=== PATIENT | female | born 1995 | race Caucasian/White ===

== ENCOUNTER 2020-01-14 00:42 | Observation (INO) | payer SELFPAY ==
[2020-01-14] MEDS ORDERED: ONDANSETRON HCL INJ/PF 4 MG/2 ML SDV IV ONE ×2 (01:42→09:34)
[2020-01-14] MEDS ORDERED: NORMAL SALINE 1000 ML 1,000 ML IV ONE ×3 (01:42→12:38)
[2020-01-14] MEDS ORDERED: MORPHINE SULFATE 10 MG/ML INJ IV ONE ×4 (01:42→12:07)
--- NOTE | 2020-01-14 01:46 | ER Document Report ---
ED GI/ - General TRAVEL OUTSIDE OF THE [place] IN LAST 30 DAYS: No <VALENTIN AGUIAR - Last Filed: 01/14/20 07:40> <KAREN ABERNATHY - Last Filed: 01/14/20 12:44> - General Chief Complaint: Abdominal Pain Stated Complaint: POSSIBLE APPENDIX PAIN Time Seen by Provider: 01/14/20 01:34 Primary Care Provider: MARCELO GILBERT [NO LOCAL MD] - Follow up as needed Notes: Patient is a 24-year-old female that comes emergency department for chief complaint of mid to right lower abdominal pain that is been constant for the past 3 days with vomiting for the past 2 days multiple times. She also reports that she has some current light vaginal bleeding but she is unsure if she has discharge. She denies dysuria or flank pain. She states that she was evaluated at [facility] yesterday, she states she had a CAT scan and ultrasound, she states they told her she had a UTI and discharged her. She states they told her that her "appendix was inflamed but the white blood cell count was not high enough". She also reports a history of kidney stones, ovarian cysts (PCOS), and cholecystectomy. She states she takes vitamins on a daily basis but no other medications. Even when I asked patient when her last menstrual period she failed to tell me that she was . She states she thought I was told by nursing who interviewed her first. After her positive test I reevaluated her, she states that she is actually 7 weeks with twins, she had a intrauterine noted yesterday with the ultrasound, and she still insist that they cat scanned her yesterday. We are obtaining the reports. (VALENTIN AGUIAR) - Related Data Allergies/Adverse Reactions: No Known Allergies Allergy (Verified 02/15/13 13:57) Past Medical History - General Information source: Patient - Social History Smoking Status: Never Smoker Frequency of alcohol use: None Drug Abuse: None Lives with: Family Family History: Reviewed & Not Pertinent Patient has suicidal ideation: No Patient has homicidal ideation: No Renal/ Medical History: Reports: Hx Kidney Stones Past Surgical History: Reports: Hx Cholecystectomy, Hx Orthopedic Surgery - ankle & wrist - Immunizations Hx Diphtheria, Pertussis, Tetanus Vaccination: Yes <VALENTIN AGUIAR - Last Filed: 01/14/20 07:40> Review of Systems - Review of Systems Constitutional: No symptoms reported EENT: No symptoms reported Cardiovascular: No symptoms reported Respiratory: No symptoms reported Gastrointestinal: See HPI Genitourinary: No symptoms reported Female Genitourinary: See HPI Musculoskeletal: No symptoms reported Skin: No symptoms reported Hematologic/Lymphatic: No symptoms reported Neurological/Psychological: No symptoms reported <VALENTIN AGUIAR - Last Filed: 01/14/20 07:40> Physical Exam <VALENTIN AGUIAR - Last Filed: 01/14/20 07:40> - Vital signs Vitals: Temp Pulse Resp BP Pulse Ox 97.8 F 68 15 123/73 100 01/14/20 00:48 01/14/20 00:48 01/14/20 00:48 01/14/20 00:48 01/14/20 00:48 - Notes Notes: GENERAL: Alert, interacts well. Patient appears somewhat uncomfortable HEAD: Normocephalic, atraumatic. EYES: Pupils equal, round, and reactive to light. Extraocular movements intact. ENT: Oral mucosa moist, tongue midline. Oropharynx unremarkable. Airway patent. NECK: Full range of motion. Supple. Trachea midline. LUNGS: Clear to auscultation bilaterally, no wheezes, rales, or rhonchi. No respiratory distress. HEART: Regular rate and rhythm. No murmur ABDOMEN: There is tenderness in the right lower quadrant and in the right pelvic area with wincing. There is no severe guarding or rebound tenderness. Remaining abdomen is soft and unremarkable. Bowel sounds present. GENITOURINARY: Cervix closed, no current bleeding or significant discharge, unremarkable exam. Performed with SEBASTIÁN Moctezuma. EXTREMITIES: Moves all 4 extremities spontaneously. No edema, normal radial and dorsalis pedis pulses bilaterally. No cyanosis. BACK: no cervical, thoracic, lumbar midline tenderness. No saddle anesthesia, normal distal neurovascular exam. Moves all extremities in full range of motion. NEUROLOGICAL: Alert and oriented x3. Normal speech. Cranial nerves II through XII grossly intact. PSYCH: Slightly tearful SKIN: Warm, dry, normal turgor. No rashes or lesions noted. (VALENTIN AGUIAR) Course - Laboratory Result Diagrams: 01/14/20 02:00 01/14/20 02:00 <VALENTIN AGUIAR - Last Filed: 01/14/20 07:40> - Laboratory Result Diagrams: 01/14/20 02:00 01/14/20 02:00 <KAREN ABERNATHY - Last Filed: 01/14/20 12:44> - Re-evaluation Re-evalutation: Patient is tender in the right lower quadrant. Pelvic exam is unremarkable. Remaining exam is unremarkable. Vital signs nonspecific with no fever. CBC does show leukocytosis at 17,000 with elevation of neutrophils but no bandemia. Hemoglobin unremarkable. RhoGam not indicated. hCG is elevated as expected. Urine nonspecific. Ultrasound shows living intrauterine twin gestations at 7 weeks with no acute findings. Ultrasound of the right lower quadrant does not show any concerning findings. On reevaluation patient continues to have right lower quadrant pain on exam and is uncomfortable again. I have attempted to get [facility] records twice now, first records were incomplete, second records received several hours later and finally shows that patient had an MRI without contrast on 01/12/2020 which showed an appendicolith but no overt inflammation of the appendix. I called and spoke with Dr. Rascon, surgery on-call, he recommends most likely patient will need an MRI if she is agreeable with this and that I should consult MATHEMATICAL ENGINEER in regards to the type of MRI (contrast or not). He also recommends that I discussed with patient that if she need surgery there is a around 60% chance that she will lose the twins. He requests that if imaging is performed that he be called back. I did discuss this with patient. She states the pain is persistent and she would like to proceed with imaging and potential surgery. I called and spoke with Dr. Bar, MATHEMATICAL ENGINEER oncology, she recommends MRI of the abdomen with contrast. She recommends I discussed with patient that the contras t has not been extremely studied but there have been no documented concerning events, patient still agreeable. Imaging ordered, Dr. Rascon will be called back with the results. (VALENTIN AGUIAR) 01/14/20 08:36 Assumed care of the patient from LINCOLN Aguiar. Patient with RLQ abd pain with leukocytosis with high suspicion for possible appendicitis. Patient is 7 weeks with twin gestation. US failed to evaluate fully for appendicitis and MRI has been recommended. Apparently she was evaluated at [place] for the same and MRI was performed that showed an appendicolith. Dr. Rascon and Dr. Bar were consulted. Plan to call Dr. Rascon after results of MRI. 01/14/20 11:36 Noted MRI reading here that does not visualize the appendix but also states that there is no inflammatory changes in the right lower quadrant. Patient has required more pain medicine and antiemetic medicine here prior to MRI. I called Dr. Roman, general surgeon on-call and explained the case to him which was turned over to him by Dr. Rascon. He will come see the patient. He is asked me to consult MATHEMATICAL ENGINEER. I spoke with Dr. Clay, TAXONOMY TEACHER on-call. She will come and consult on the patient. 01/14/20 12:03 Dr. Clay came down and saw the patient. She agrees that she is very tender in the right lower quadrant and she will call Dr. Roman and let him know that she came and saw the patient as well. 01/14/20 12:42 Dr. Lawson came and saw the patient. He will take her to the OR. He asked for me to write for Zosyn and give her another liter of fluid as well. Patient is aware of the plan and she agrees. We will admit her for acute appendicitis. (KAREN ABERNATHY) - Vital Signs Vital signs: Temp Pulse Resp BP Pulse Ox 98.0 F 88 16 98/55 L 100 01/14/20 08:58 01/14/20 08:58 01/14/20 08:58 01/14/20 08:58 01/14/20 08:58 - Laboratory Laboratory results interpreted by me: 01/14/20 01/14/20 01/14/20 02:00 02:00 02:00 WBC 17.4 H Absolute Neuts (auto) 12.8 H Creatinine 0.49 L Serum HCG, Qual POSITIVE H Beta HCG, Quant 01/14/20 02:00 WBC Absolute Neuts (auto) Creatinine Serum HCG, Qual Beta HCG, Quant 801407.00 H Discharge <VALENTIN AGUIAR - Last Filed: 01/14/20 07:40> - Discharge Admitting Provider: Surgicalist - Dr. Roman Unit Admitted: Surgical Floor <KAREN ABERNATHY - Last Filed: 01/14/20 12:44> - Discharge Clinical Impression: Right lower quadrant pain Twin gestation in first trimester Qualifiers: Multiple gestation type: unspecified Qualified Code(s): O30.001 - Twin , unspecified number of placenta and unspecified number of amniotic sacs, first trimester Acute appendicitis Qualifiers: Acute appendicitis type: unspecified acute appendicitis type Qualified Code(s): K35.80 - Unspecified acute appendicitis Condition: Stable Disposition: ADMITTED INPATIENT Referrals: LOCAL,NO [NO LOCAL MD] - Follow up as needed
[2020-01-14 02:13] LABS: ABSOLUTE BASOPHILS # (AUTO) 0.1 10^3/uL (0.0-0.2); ABSOLUTE EOSINOPHILS # (AUTO) 0.3 10^3/uL (0.0-0.6); ABSOLUTE LYMPHOCYTES (AUTO) 3.1 10^3/uL (0.5-4.7); ABSOLUTE MONOCYTES (AUTO) 1.1 10^3/uL (0.1-1.4); ABSOLUTE NEUT (AUTO) 12.8 10^3/uL (1.7-8.2); BASOPHILS % (AUTO) 0.4 % (0-2); EOSINOPHILS % (AUTO) 1.8 % (0-6); HEMATOCRIT 37.8 % (36.0-47.0); HEMOGLOBIN 12.6 g/dL (12.0-15.5); LYMPHOCYTES % (AUTO) 17.9 % (13-45); MEAN CORPUSCULAR HEMOGLOBIN 28.8 pg (27.0-33.4); MEAN CORPUSCULAR HGB CONC 33.4 g/dL (32.0-36.0); MEAN CORPUSCULAR VOLUME 86 fl (80-97); MONOCYTES % (AUTO) 6.6 % (3-13); PLATELET COUNT 305 10^3/uL (150-450); RED BLOOD COUNT 4.38 10^6/uL (3.72-5.28); SEGMENTED NEUTROPHILS % (AUTO) 73.3 % (42-78); TOTAL CELLS COUNTED % (AUTO) 100 %; WHITE BLOOD COUNT 17.4 10^3/uL (4.0-10.5)
[2020-01-14 02:24] LABS: APPEARANCE,URINE SLIGHTLY-CLOUDY; BILIRUBIN,URINE NEGATIVE (NEGATIVE); CALCIUM OXALATE CRYSTALS,URINE RARE /HPF; COLOR,URINE YELLOW; GLUCOSE, URINE NEGATIVE (NEGATIVE); KETONES,URINE NEGATIVE (NEGATIVE); LEUKOCYTE ESTERASE,URINE NEGATIVE (NEGATIVE); NITRITE,URINE NEGATIVE (NEGATIVE); PROTEIN,URINE NEGATIVE (NEGATIVE); UROBILINOGEN,URINE NEGATIVE mg/dL (<2.0)
[2020-01-14 02:34] LABS: ALBUMIN 4.2 g/dL (3.5-5.0); ALKALINE PHOSPHATASE 73 U/L (38-126); ANION GAP 10 (5-19); ASPARTATE AMINO TRANSFERASE 17 U/L (14-36); BILIRUBIN,TOTAL 0.2 mg/dL (0.2-1.3); BLOOD UREA NITROGEN 7 mg/dL (7-20); CALCIUM 9.4 mg/dL (8.4-10.2); CARBON DIOXIDE 24 mmol/L (22-30); CHLORIDE 105 mmol/L (98-107); GLUCOSE 89 mg/dL (75-110); POTASSIUM 4.1 mmol/L (3.6-5.0); TOTAL PROTEIN 7.3 g/dL (6.3-8.2)
[2020-01-14 03:35] LABS: T.VAGINALIS (WET MOUNT) NO TRICHOMONAS SEEN
[2020-01-14 03:36] LABS: RBCS (WET MOUNT) RARE RBCS SEEN; WBCS (WET MOUNT) NO WBCS SEEN; YEAST (WET MOUNT) NO YEAST SEEN
--- NOTE | 2020-01-14 04:47 | RADIOLOGY REPORT (SQ) ---
Ultrasound right lower quadrant limited on 01/14/2020 at 3:26 AM CLINICAL INDICATION: Right lower quadrant pain COMPARISON: None FINDINGS: Limited sonographic imaging is performed throughout the right lower quadrant, both transverse and sagittal images are obtained. The appendix is not visualized. No free fluid or fluid collection is noted. IMPRESSION: Nonvisualization of the appendix and therefore cannot exclude appendicitis from this exam. If there is high clinical concern for appendicitis in this patient consider follow-up MRI without contrast.
--- NOTE | 2020-01-14 04:54 | RADIOLOGY REPORT (SQ) ---
Ultrasound OB less than 14 weeks on 01/14/2020 3:31 AM Clinical indications: Vaginal bleeding, COMPARISON: None FINDINGS: Multiple sonographic images are obtained throughout the pelvis by transabdominal approach only, both transverse and sagittal images are obtained. Uterus measures approximately 9.9 x 5.8 x 6.7 cm. Right ovary measures approximately 3.4 x 2.7 x 2.6 cm. Left ovary measures approximately 2.6 x 1.7 x 1.2 cm. There are twin adjacent intrauterine pregnancies with two gestational sacs with two yolk sacs and two poles. Fetus A: Fetus shows positive cardiac activity with a heart rate of 165 bpm. Estimated gestational age by crown-rump length measurement is an approximate seven week two day gestation. B: Fetus shows positive cardiac activity with a heart rate of 175 bpm. Estimated gestational age by crown-rump length measurement is an approximate seven week two day gestation. No adnexal mass or fluid collection is noted. No free fluid is noted. Gestation is too early for placental evaluation. Gestational sac shapes appear unremarkable. IMPRESSION: Twin living intrauterine fetuses of approximate seven week two day gestation.
[2020-01-14 05:01] LABS: CHLAM PCR NOT DETECTED (NOT DETECT)
--- NOTE | 2020-01-14 08:25 | RADIOLOGY REPORT (SQ) ---
EXAM DESCRIPTION: U/S [id number] + EACH ADDIT GEST COMPLETE DATE/TIME: 01/14/2020 3:58 am REASON FOR STUDY: vag bleeding FINDINGS: Please see combined report for performance of procedure and radiologic supervision and int erpretation. IMPRESSION: Please see combined report for performance of procedure and radiologic supervision and i nterpretation. Reading location - IP/workstation name: [email or web address]
--- NOTE | 2020-01-14 11:03 | RADIOLOGY REPORT (SQ) ---
EXAM DESCRIPTION: MRI ABDOMEN WITHOUT COMPLETED DATE/TIME: 01/14/2020 10:41 am REASON FOR STUDY: evaluate RLQ pain in COMPARISON: MRI from [facility] dated 01/12/2020. TECHNIQUE: Noncontrast coronal and axial imaging acquired with T1, T2, and gradient sequences. FINDINGS: LIVER: Normal size. No masses. No dilated ducts. CBD normal. SPLEEN: Normal size. No focal lesions. PANCREAS: No masses. No adjacent inflammation or peripancreatic fluid collections. Pancreatic duct no t dilated. GALLBLADDER: No masses. No stones. No gallbladder wall thickening or pericholecystic fluid. ADRENAL GLANDS: No significant masses or asymmetry. RIGHT KIDNEY AND URETER: No masses. No hydronephrosis. LEFT KIDNEY AND URETER: No masses. No hydronephrosis. AORTA AND VESSELS: No aneurysm. RETROPERITONEUM: No retroperitoneal adenopathy, hemorrhage or masses. BOWEL: No visualized masses. The appendix is not specifically visualized but there are no inflammato ry changes in the region of the cecum and right lower quadrant. No significant dilatation. ABDOMINAL WALL AND PERITONEUM: No hernias. No free fluid. BONES: No acute or significant findings. OTHER: Twin intrauterine . IMPRESSION: NO SIGNIFICANT OR ACUTE FINDINGS. THE APPENDIX IS NOT SPECIFICALLY VISUALIZED BUT NO IN FLAMMATORY CHANGES IN THE RIGHT LOWER QUADRANT. TECHNICAL DOCUMENTATION: JOB ID: [id number] 2010 [employer]- All Rights Reserved Reading location - IP/workstation name: [id number]
[2020-01-14] MEDS ORDERED: PIPERACILLIN/TAZOBACTAM 3.375 GM VIAL IV ONE (12:21)
[2020-01-14] MEDS ORDERED: NEOSTIGMINE METHYLSULFATE 10 MG/10 ML VIAL ONE (12:36)
[2020-01-14] MEDS ORDERED: DEXAMETHASONE SOD PHOSPHATE INJ 4 MG/1 ML VIAL ONE (12:36)
[2020-01-14] MEDS ORDERED: ROCURONIUM BROMIDE INJ 50 MG/5 ML VIAL IV ONE (12:36)
[2020-01-14] MEDS ORDERED: GLYCOPYRROLATE 1 MG/5 ML VIAL ONE (12:36)
[2020-01-14] MEDS ORDERED: PHENYLEPHRINE HCL INJ/PF 10 MG/1 ML SDV ONE (12:36)
[2020-01-14] MEDS ORDERED: SUCCINYLCHOLINE CHLORIDE INJ 200 MG/10 ML VIAL ONE (12:36)
--- NOTE | 2020-01-14 13:18 | PDOC H&P ---
History of Present Illness Admission Date/PCP: 01/14/2020 Patient complains of: Abdominal pains with nausea History of Present Illness: JOSE GOVEA is a 24 year old female started complaining of nausea and vomiting 3 days ago. 2 days ago started complaining of pains and went to ED in [place] where MRI of the abdomen was done which showed possible appendicolith but no stranding noted. She is known to have a 7weeks twin . Yesterday she complained of severe severe abdominal pains and went to our ED where again an MRI was done which did not show the appendix. There is also no evidence of inflammation around the right lower quadrant area. However patient has tenderness and rebound on the right lower quadrant with nausea. Every time she eats she vomits. Her white count is 17,000 and her urine is essentially unremarkable. She was seen by Dr. Clay for EMPLOYMENT SECURITY OFFICER and OB consultation and she feels there is no INFORMATION SYSTEMS AUDIT MANAGER finding causing patient's right lower quadrant pains. Patient denies fever nor chills but admits to having constipation. Past Surgical History Past Surgical History: Reports: Cholecystectomy, Orthopedic Surgery - ankle & wrist Social History Lives with: Family Smoking Status: Never Smoker Family History Family History: Reviewed & Not Pertinent Parental Family History Reviewed: No Children Family History Reviewed: No Sibling(s) Family History Reviewed.: No Medication/Allergy Home Medications: Vits96/Iron Fum/Folic [ Tablet] 1 tab PO DAILY 01/14/20 Allergies/Adverse Reactions: No Known Allergies Allergy (Verified 02/15/13 13:57) Review of Systems Constitutional: PRESENT: as per HPI Cardiovascular: PRESENT: other - No chest pains nor cough Gastrointestinal: PRESENT: abdominal pain, constipation, nausea Physical Exam Vital Signs: Temp Pulse Resp BP Pulse Ox 98.0 F 88 16 98/55 L 100 01/14/20 08:58 01/14/20 08:58 01/14/20 08:58 01/14/20 08:58 01/14/20 08:58 Intake & Output 01/13/20 01/14/20 01/15/20 06:59 06:59 06:59 Intake Total 1000 1000 Balance 1000 1000 Weight 82.6 kg General appearance: PRESENT: mild distress Eye exam: PRESENT: conjunctiva pink Mouth exam: PRESENT: moist Neck exam: PRESENT: full ROM Respiratory exam: PRESENT: clear to auscultation awais Cardiovascular exam: PRESENT: RRR Pulses: PRESENT: normal radial pulses Vascular exam: PRESENT: normal capillary refill GI/Abdominal exam: PRESENT: soft, tenderness - With rebound at the right lower quadrant area Rectal exam: PRESENT: deferred Neurological exam: PRESENT: alert, oriented to person, oriented to place, oriented to time, oriented to situation Psychiatric exam: PRESENT: appropriate affect Skin exam: PRESENT: normal color, warm Results Laboratory Results: 01/14/20 02:00 01/14/20 02:00 01/14/20 01/14/20 01/14/20 02:00 02:00 02:00 WBC 17.4 H RBC 4.38 Hgb 12.6 Hct 37.8 MCV 86 MCH 28.8 MCHC 33.4 RDW 13.0 Plt Count 305 Seg Neutrophils % 73.3 Sodium 139.0 Potassium 4.1 Chloride 105 Carbon Dioxide 24 Anion Gap 10 BUN 7 Creatinine 0.49 L Est GFR ( Amer) > 60 Glucose 89 Calcium 9.4 Total Bilirubin 0.2 AST 17 Alkaline Phosphatase 73 Total Protein 7.3 Albumin 4.2 Lipase 28.2 Serum HCG, Qual POSITIVE H Urine Color Urine Appearance Urine pH Ur Specific [place] Urine Protein Urine Glucose (UA) Urine Ketones Urine Blood Urine Nitrite Ur Leukocyte Esterase Urine WBC (Auto) Urine RBC (Auto) Blood Type 01/14/20 01/14/20 02:00 02:55 WBC RBC Hgb Hct MCV MCH MCHC RDW Plt Count Seg Neutrophils % Sodium Potassium Chloride Carbon Dioxide Anion Gap BUN Creatinine Est GFR ( Amer) Glucose Calcium Total Bilirubin AST Alkaline Phosphatase Total Protein Albumin Lipase Serum HCG, Qual Urine Color YELLOW Urine Appearance SLIGHTLY-CLOUDY Urine pH 5.0 Ur Specific [place] 1.020 Urine Protein NEGATIVE Urine Glucose (UA) NEGATIVE Urine Ketones NEGATIVE Urine Blood NEGATIVE Urine Nitrite NEGATIVE Ur Leukocyte Esterase NEGATIVE Urine WBC (Auto) 6 Urine RBC (Auto) 5 Blood Type O POSITIVE Impressions: Abdomen Ultrasound 01/14/20 03:01 IMPRESSION: Nonvisualization of the appendix and therefore cannot exclude appendicitis from this exam. If there is high clinical concern for appendicitis in this patient consider follow-up MRI without contrast. Obstetrics Ultrasound 01/14/20 03:01 IMPRESSION: Twin living intrauterine fetuses of approximate seven week two day gestation. Abdomen MRI 01/14/20 06:36 IMPRESSION: NO SIGNIFICANT OR ACUTE FINDINGS. THE APPENDIX IS NOT SPECIFICALLY VISUALIZED BUT NO INFLAMMATORY CHANGES IN THE RIGHT LOWER QUADRANT. Assessment & Plan - Diagnosis (1) Acute appendicitis Qualifiers: Acute appendicitis type: unspecified acute appendicitis type Qualified Cod e(s): K35.80 - Unspecified acute appendicitis Is this a current diagnosis for this admission?: Yes (2) Right lower quadrant pain Is this a current diagnosis for this admission?: Yes (3) Twin gestation in first trimester Qualifiers: Multiple gestation type: unspecified Qualified Code(s): O30.001 - Twin , unspecified number of placenta and unspecified number of amniotic sacs, first trimester Is this a current diagnosis for this admission?: Yes - Time Time Spent: 30 to 50 Minutes - Inpatient Certification Based on my medical assessment, after consideration of the patient's comorbidities, presenting symptoms, or acuity I expect that the services needed warrant INPATIENT care.: Yes I certify that my determination is in accordance with my understanding of Medicare's requirements for reasonable and necessary INPATIENT services [42 CFR 412.3e].: Yes Medical Necessity: Need for Pain Control, Need for IV Antibiotics, Need for Surgery - Plan Summary Plan Summary: 24-year-old female 3 para 2 started complaining of nausea and vomiting 3 days ago. 2 days ago started having abdominal pains and went to ED at [place] where an MRI showed possible appendicolith. Pains worsen last night and went to ED where a repeat MRI showed no stranding in the right lower quadrant area and the appendix was not visualized. However patient has tenderness and rebound in the right lower quadrant with elevated white count of 17,000. Patient was cleared by INFORMATION SYSTEMS AUDIT MANAGER for any INFORMATION SYSTEMS AUDIT MANAGER findings causing right lower quadrant tenderness. After long discussion with the patient and the risks of having miscarriage postoperatively an informed consent was then obtained for laparoscopic appendectomy. Plans: Start IV antibiotics and hydrate For laparoscopic appendectomy
[2020-01-14] MEDS ORDERED: ONDANSETRON HCL INJ/PF 4 MG/2 ML SDV IV PRN (13:25)
[2020-01-14] MEDS ORDERED: BUPIVACAINE HCL 0.25 % INJ/PF (2.5 MG/1 ML) 30 ML VIAL ONE (13:38)
[2020-01-14] MEDS ORDERED: FENTANYL CITRATE INJ/PF 100 MCG/2 ML AMPUL ONE ×3 (13:41→15:32)
[2020-01-14] MEDS ORDERED: PROPOFOL INJ 200 MG/20 ML VIAL IV ONE (13:41)
[2020-01-14] MEDS ORDERED: PROMETHAZINE HCL INJ 25 MG/1 ML VIAL IV PRN (14:48)
[2020-01-14] MEDS ORDERED: FENTANYL CITRATE INJ/PF 100 MCG/2 ML AMPUL IV PRN ×3 (14:48)
--- NOTE | 2020-01-14 15:01 | PDOC CONSULTATION ---
Consultation Consult Date: 01/14/20 Attending physician:: DARIEN ROMAN Provider Consulted: MIN RODRIGUEZ Consult reason:: 7wks with Twins, RLQ pain History of Present Illness Admission Date/PCP: 01/14/20 13:16 Patient complains of: RLQ since Monday evening History of Present Illness: Patient seen and examined at 1147 this am. This is a late entry note. JOSE GOVEA is a 24 year old female at 7+2ega with TIUP per US tod ay. She reports that she began having pain and nausea/vomiting on Monday afternoon/evening. She originally went to ED at [facility] where imaging showed possible appendicolith but the providers told her there that her WBC count was not lacey enough to be appendicitis and dx her with UTI. She reports that she was given antibiotics. Pains worsened last night and went to ED where a repeat MRI showed no stranding in the right lower quadrant area and the appendix was not visualized. No adnexal pathology was identified on imaging today. GC/CT negative and wet prep negative. Urinalysis unremarkable except for dehydration. She has been in the ER since early this am. No e/o pyelo and no CVAT on exam. Past Medical History Gynecological Infection: No Medical History: None Cardiac Medical History: Reports: None Pulmonary Medical History: Reports: None Renal/ Medical History: Reports: None Malignancy Medical History: Reports: None GI Medical History: Reports: None Musculoskeltal Medical History: Reports: None Psychiatric Medical History: Reports: None Traumatic Medical History: Reports: None Infectious Medical History: Reports: None Social History Information Source: Patient Lives with: Family Smoking Status: Never Smoker Electronic Cigarette use?: No Frequency of Alcohol Use: None Hx Recreational Drug Use: No Drugs: None Hx Prescription Drug Abuse: No - Advance Directive Resuscitation Status: Full Code Family History Family History: Reviewed & Not Pertinent Parental Family History Reviewed: No Children Family History Reviewed: NA Sibling(s) Family History Reviewed.: NA Medication/Allergy Home Medications: Vits96/Iron Fum/Folic [ Tablet] 1 tab PO DAILY 01/14/20 Allergies/Adverse Reactions: No Known Allergies Allergy (Verified 02/15/13 13:57) Review of Systems Constitutional: ABSENT: chills, fever(s), headache(s), weight gain, weight loss Eyes: ABSENT: visual disturbances Cardiovascular: ABSENT: chest pain, dyspnea on exertion, edema, orthropnea, palpitations Respiratory: ABSENT: cough, hemoptysis Gastrointestinal: PRESENT: abdominal pain, nausea, vomiting. ABSENT: constipa tion, diarrhea, hematemesis, hematochezia Genitourinary: ABSENT: dysuria, hematuria Musculoskeletal: ABSENT: joint swelling Integumentary: ABSENT: rash, wounds Neurological: ABSENT: abnormal gait, abnormal speech, confusion, dizziness, focal weakness, syncope Psychiatric: ABSENT: anxiety, depression, homidical ideation, suicidal ideation Endocrine: ABSENT: cold intolerance, heat intolerance, polydipsia, polyuria Hematologic/Lymphatic: ABSENT: easy bleeding, easy bruising Physical Exam - Physical Exam Vital Signs: Temp Pulse Resp BP Pulse Ox 98.0 F 88 16 98/55 L 100 01/14/20 08:58 01/14/20 08:58 01/14/20 08:58 01/14/20 08:58 01/14/20 08:58 Intake & Output 01/13/20 01/14/20 01/15/20 06:59 06:59 06:59 Intake Total 1000 1000 Balance 1000 1000 Weight 82.6 kg General appearance: PRESENT: no acute distress, well-developed, well-nourished Head exam: PRESENT: atraumatic, normocephalic Ear exam: PRESENT: normal external ear exam Respiratory exam: PRESENT: clear to auscultation awais, symmetrical, unlabored Cardiovascular exam: PRESENT: RRR. ABSENT: diastolic murmur, rubs, systolic murmur Pulses: PRESENT: normal dorsalis pedis pul, +2 pedal pulses bilateral Vascular exam: PRESENT: normal capillary refill GI/Abdominal exam: PRESENT: guarding, normal bowel sounds, rebound, soft, te nderness. ABSENT: distended, mass, organolmegaly Rectal exam: PRESENT: deferred Extremities exam: PRESENT: full ROM. ABSENT: calf tenderness, clubbing, pedal edema Neurological exam: PRESENT: alert, awake, oriented to person, oriented to place, oriented to time, oriented to situation, CN II-XII grossly intact. ABSENT: mo tor sensory deficit Psychiatric exam: PRESENT: appropriate affect, normal mood. ABSENT: homicidal ideation, suicidal ideation Skin exam: PRESENT: dry, intact, warm. ABSENT: cyanosis, rash Result Laboratory Results: 01/14/20 02:00 01/14/20 02:00 01/14/20 01/14/20 01/14/20 02:00 02:00 02:00 WBC 17.4 H RBC 4.38 Hgb 12.6 Hct 37.8 MCV 86 MCH 28.8 MCHC 33.4 RDW 13.0 Plt Count 305 Seg Neutrophils % 73.3 Sodium 139.0 Potassium 4.1 Chloride 105 Carbon Dioxide 24 Anion Gap 10 BUN 7 Creatinine 0.49 L Est GFR ( Amer) > 60 Glucose 89 Calcium 9.4 Total Bilirubin 0.2 AST 17 Alkaline Phosphatase 73 Total Protein 7.3 Albumin 4.2 Lipase 28.2 Serum HCG, Qual POSITIVE H Urine Color Urine Appearance Urine pH Ur Specific [place] Urine Protein Urine Glucose (UA) Urine Ketones Urine Blood Urine Nitrite Ur Leukocyte Esterase Urine WBC (Auto) Urine RBC (Auto) Blood Type 01/14/20 01/14/20 02:00 02:55 WBC RBC Hgb Hct MCV MCH MCHC RDW Plt Count Seg Neutrophils % Sodium Potassium Chloride Carbon Dioxide Anion Gap BUN Creatinine Est GFR ( Amer) Glucose Calcium Total Bilirubin AST Alkaline Phosphatase Total Protein Albumin Lipase Serum HCG, Qual Urine Color YELLOW Urine Appearance SLIGHTLY-CLOUDY Urine pH 5.0 Ur Specific [place] 1.020 Urine Protein NEGATIVE Urine Glucose (UA) NEGATIVE Urine Ketones NEGATIVE Urine Blood NEGATIVE Urine Nitrite NEGATIVE Ur Leukocyte Esterase NEGATIVE Urine WBC (Auto) 6 Urine RBC (Auto) 5 Blood Type O POSITIVE Impressions: Abdomen Ultrasound 01/14/20 03:01 IMPRESSION: Nonvisualization of the appendix and therefore cannot exclude appendicitis from this exam. If there is high clinical concern for appendicitis in this patient consider follow-up MRI without contrast. Obstetrics Ultrasound 01/14/20 03:01 IMPRESSION: Twin living intrauterine fetuses of approximate seven week two day gestation. Abdomen MRI 01/14/20 06:36 IMPRESSION: NO SIGNIFICANT OR ACUTE FINDINGS. THE APPENDIX IS NOT SPECIFICALLY VISUALIZED BUT NO INFLAMMATORY CHANGES IN THE RIGHT LOWER QUADRANT. Status: Imported from PACS Assessment & Plan - Diagnosis (1) Right lower quadrant pain Is this a current diagnosis for this admission?: Yes Plan: Does not appear to be FUR STYLIST in origin. No ovarian cyst noted on Abdominal/Pelvic US or MRI. +rebound/+guarding. called Dr. Roman with verbal report at approximate noon until I could enter an official consult. Advised patient of risks of miscarriage with surgical intervention for appy and anesthesia as well as also risk of miscarriage if appendicitis rupture/acute infectious process in abdomen. Dr. Roman will see patient (2) Twin gestation in first trimester Qualifiers: Multiple gestation type: unspecified Qualified Code(s): O30.001 - Twin , unspecified number of placenta and unspecified number of amniotic sacs, first trimester Is this a current diagnosis for this admission?: Yes Plan: TIUP with both heart beats wnl. scant spotting yesterday resolved today and had a normal pelvic exam early this am in ER. see above for risks reviewed with patient. Plan prometrium 200mg per vaginal nightly until 16wks. (3) Acute appendicitis Qualifiers: Acute appendicitis type: unspecified acute appendicitis type Qualified Code(s): K35.80 - Unspecified acute appendicitis Is this a current diagnosis for this admission?: Yes Plan: management per Gen Surgery - Time Time Spent: 30 to 50 Minutes Critical Time spent with patient: 15-24 minutes Medications reviewed and adjusted accordingly: Yes Anticipated discharge: Home Within: within 48 hours - Inpatient Certification Based on my medical assessment, after consideration of the patient's comorbidities, presenting symptoms, or acuity I expect that the services needed warrant INPATIENT care.: Yes I certify that my determination is in accordance with my understanding of Medicare's requirements for reasonable and necessary INPATIENT services [42 CFR 412.3e].: Yes Medical Necessity: Need For IV Fluids, Need for Pain Control, Need for IV Antibiotics, Need for Surgery - Plan Summary Plan Summary: per Dr. Roman
--- NOTE | 2020-01-14 15:34 | Operative Report ---
Operative Report DATE OF SURGERY: 01/14/20 PREOPERATIVE DIAGNOSIS: Right lower quadrant pains. Acute appendicitis POSTOPERATIVE DIAGNOSIS: Right lower quadrant pains. Fecalith in the appendix OPERATION: Laparoscopic appendectomy SURGEON: DARIEN HENNING ANESTHESIA: GA TISSUE REMOVED OR ALTERED: Appendix COMPLICATIONS: None ESTIMATED BLOOD LOSS: 10 cc QUANTITATIVE BLOOD LOSS: 10 INTRAOPERATIVE FINDINGS: Fecalith in the appendix. No definite inflammation PROCEDURE: After adequate general anesthesia patient was placed in supine position on the abdomen prepped and draped in the usual sterile fashion. Appropriate timeout was then called. Next an infraumbilical incision was made the fascia identified and grasped with Kevon clamps and divided between the Wanda clamps. The 0 Vicryl sutures were placed on each side of the Wanda clamp. Fascia was then punctured with the hemostat then later on with bigger clamp. The Wanda clamps were released and the stay sutures lifted up and digital palpation infraumbilical area was made. No obvious adhesions noted in the peritoneal area and a Tripathi trocar was then inserted through the fascia into the abdominal cavity and CO2 insufflated to a pressure of 15 mmHg. 2 other trochars were placed a 5 mm in the suprapubic and 12 mm in the left lower quadrant. The appendix was then identified and no obvious inflammation noted but appears to have a fecalith towards the mid and distal part of the appendix. The uterus appears to be intact together with Q cyst on the right ovary. was in the operating room noting all the JOINT CUTTER MACHINE findings. They feel she feels that all the JOINT CUTTER MACHINE and OB findings were appropriate for the 7 weeks gestation. She also noted that there appears to have fecalith in the appendix. Next a window was developed at the base of the appendix just above the cecum and the appendix was then divided were then 35mm LEYDI white. Next the mesoappendix was then divided with a harmonic antonio. Minimal bleeding noted and this was then irrigated. No active bleeding noted after irrigation. And rate a small piece of Surgicel was placed on the operative site for better hemostasis. Next omentum was then put back over the area of the appendix. Next all the trochars were removed and CO2 allowed to come out of the trocar sites. The fascial defect the infraumbilical area was closed with a [id number] suture using 0 Vicryl and the 2 stay sutures tied together for better closure. Next anesthesia was infiltrated along the fascia and all the subcu incision sites. All the skin incisions were then closed with running subcuticular closure using 4-0 Vicryl undyed. Steri-Strips placed over the operative sites. Needle instrument sponge count were all correct and estimated blood loss about 10 cc. Patient brought to the recovery room in satisfactory condition extubated.
[2020-01-14] MEDS ORDERED: HYDROMORPHONE HCL INJ/PF 2 MG/ML AMPULE ONE (15:39)
[2020-01-14] MEDS: MORPHINE SULFATE 10 MG/ML INJ IV PRN ×3 (16:50→22:48)
[2020-01-14] MEDS ORDERED: PROMETHAZINE HCL INJ 25 MG/1 ML VIAL ONE (17:03)
[2020-01-14] MEDS: DEXTROSE 5%-LACTATED RINGERS 1,000 ML IV PRN (17:09)
[2020-01-14] MEDS ORDERED: HYDROMORPHONE HCL INJ/PF 2 MG/ML AMPULE IV ONE (17:30)
[2020-01-14] MEDS ORDERED: PIPERACILLIN/TAZOBACTAM 3.375 GM VIAL IV SCH (18:00)
[2020-01-14] MEDS: PIPERACILLIN SODIUM/TAZOBACTAM 3.375 GM in NORMAL SALINE 100 ML IV SCH ×2 (18:20→23:20)
[2020-01-14] MEDS: PROMETHAZINE HCL INJ 25 MG/1 ML VIAL IV PRN (20:44)
[2020-01-15] MEDS: DEXTROSE 5%-LACTATED RINGERS 1,000 ML IV PRN ×2 (01:10→07:58)
[2020-01-15] MEDS: MORPHINE SULFATE 10 MG/ML INJ IV PRN ×4 (02:53→16:08)
[2020-01-15] MEDS: PIPERACILLIN SODIUM/TAZOBACTAM 3.375 GM in NORMAL SALINE 100 ML IV SCH ×3 (05:35→18:02)
--- NOTE | 2020-01-15 07:45 | PDOC PROGRESS REPORT ---
Subjective Progress Note for:: 01/15/20 Subjective:: Incisional pains and lower abdominal pains. No nausea or vomiting. Reason For Visit: ACUTE APPENDICITIS TWIN PREGNANCIES 7 WEEKS Physical Exam Vital Signs: Temp Pulse Resp BP Pulse Ox 98.7 F 80 18 100/50 L 98 01/15/20 04:01 01/15/20 04:01 01/15/20 04:01 01/15/20 04:01 01/15/20 04:01 Intake & Output 01/14/20 01/15/20 01/16/20 06:59 06:59 06:59 Intake Total 1000 4050 Output Total 3560 Balance 1000 490 Weight 82.6 kg 82.2 kg Exam: Abdomen is soft with tenderness along the incision sites and pelvic area. There is mild erythema along the umbilical incision site. Remains afebrile Results Laboratory Results: 01/14/20 02:00 01/14/20 02:00 Impressions: Abdomen Ultrasound 01/14/20 03:01 IMPRESSION: Nonvisualization of the appendix and therefore cannot exclude appendicitis from this exam. If there is high clinical concern for appendicitis in this patient consider follow-up MRI without contrast. Obstetrics Ultrasound 01/14/20 03:01 IMPRESSION: Twin living intrauterine fetuses of approximate seven week two day gestation. Abdomen MRI 01/14/20 06:36 IMPRESSION: NO SIGNIFICANT OR ACUTE FINDINGS. THE APPENDIX IS NOT SPECIFICALLY VISUALIZED BUT NO INFLAMMATORY CHANGES IN THE RIGHT LOWER QUADRANT. Assessment & Plan - Diagnosis (1) Acute appendicitis Qualifiers: Acute appendicitis type: unspecified acute appendicitis type Qualified Code(s): K35.80 - Unspecified acute appendicitis Is this a current diagnosis for this admission?: Yes (2) Right lower quadrant pain Is this a current diagnosis for this admission?: Yes (3) Twin gestation in first trimester Qualifiers: Multiple gestation type: unspecified Qualified Code(s): O30.001 - Twin , unspecified number of placenta and unspecified number of amniotic sacs, first trimester Is this a current diagnosis for this admission?: Yes - Time Critical Time spent with patient: 15-24 minutes - Inpatient Certification Medical Necessity: Need For IV Fluids, Need for Pain Control, Need for IV Antibiotics - Plan Summary Plan Summary: Postop day #1 for laparoscopic appendectomy for fecalith in the appendix and right lower quadrant pains with nausea and vomiting. White count was 17,000 preop. This will be rechecked this morning. Patient is also being followed by TELEMETRY TECHNICIAN and Dr. Clay's planning to give progesterone to to further stabilize the Continue with parenteral anti-pain medications at this time since she claims she still has some sore throat from there surgery that will make her difficult to swallow any pain pills. She claims she had the same problem after her laparoscopic cholecystectomy where she needed 2 to 3 days to recover.
[2020-01-15 08:10] LABS: ABSOLUTE LYMPHOCYTES (AUTO) 2.2 10^3/uL (0.5-4.7); ABSOLUTE MONOCYTES (AUTO) 1.4 10^3/uL (0.1-1.4); ABSOLUTE NEUT (AUTO) 13.7 10^3/uL (1.7-8.2); BASOPHILS % (AUTO) 0.3 % (0-2); EOSINOPHILS % (AUTO) 0.2 % (0-6); HEMATOCRIT 29.1 % (36.0-47.0); LYMPHOCYTES % (AUTO) 12.6 % (13-45); MEAN CORPUSCULAR HEMOGLOBIN 29.8 pg (27.0-33.4); MEAN CORPUSCULAR VOLUME 85 fl (80-97); MONOCYTES % (AUTO) 8.1 % (3-13); PLATELET COUNT 239 10^3/uL (150-450); RED BLOOD COUNT 3.42 10^6/uL (3.72-5.28); RED CELL DISTRIBUTION WIDTH 12.8 % (11.5-14.0); SEGMENTED NEUTROPHILS % (AUTO) 78.8 % (42-78); TOTAL CELLS COUNTED % (AUTO) 100 %; WHITE BLOOD COUNT 17.3 10^3/uL (4.0-10.5)
[2020-01-15 08:19] LABS: HEMOGLOBIN 10.2 g/dL (12.0-15.5)
[2020-01-15] MEDS: PROMETHAZINE HCL INJ 25 MG/1 ML VIAL IV PRN ×2 (12:03→22:24)
[2020-01-15] MEDS ORDERED: OXYCODONE HCL IR 5 MG TABLET PO PRN ×2 (16:19→16:30)
[2020-01-15] MEDS ORDERED: OXYCODONE HCL SR 10 MG TABLET PO PRN (16:19)
--- NOTE | 2020-01-15 16:33 | PDOC PROGRESS REPORT ---
Subjective Progress Note for:: 01/15/20 Subjective:: Complaints of pain this afternoon. She states pain is 4/5 now in lower abdomen and around her incisions. No menstrual like cramping. She had been eating and tolerating well. Voiding without incidence. She has no VB. She has been taking morphine 4 mg IV but it wears off quickly. She has been ambulating in the room only. No dizziness Reason For Visit: ACUTE APPENDICITIS TWIN PREGNANCIES 7 WEEKS Physical Exam - Physical Exam Vital Signs: Temp Pulse Resp BP Pulse Ox 98.6 F 77 16 101/54 L 99 01/15/20 14:44 01/15/20 14:44 01/15/20 14:44 01/15/20 14:44 01/15/20 14:44 Intake & Output 01/14/20 01/15/20 01/16/20 06:59 06:59 06:59 Intake Total 1000 4150 2000 Output Total 3560 Balance 8790 803 8220 Weight 82.6 kg 82.2 kg General appearance: PRESENT: no acute distress Respiratory exam: PRESENT: clear to auscultation awais Cardiovascular exam: PRESENT: RRR, +S1, +S2 GI/Abdominal exam: PRESENT: distended - abdomen soft, and is somewhat distended. No guarding or rebound, hypoactive bowel sounds, soft Psychiatric exam: PRESENT: appropriate affect Skin exam: PRESENT: normal color - bruising around incisions noted. Result Laboratory Results: 01/15/20 07:41 01/14/20 02:00 01/15/20 07:41 WBC 17.3 H RBC 3.42 L Hgb 10.2 L D Hct 29.1 L MCV 85 MCH 29.8 MCHC 35.0 RDW 12.8 Plt Count 239 Seg Neutrophils % 78.8 H Impressions: Abdomen Ultrasound 01/14/20 03:01 IMPRESSION: Nonvisualization of the appendix and therefore cannot exclude appendicitis from this exam. If there is high clinical concern for appendicitis in this patient consider follow-up MRI without contrast. Obstetrics Ultrasound 01/14/20 03:01 IMPRESSION: Twin living intrauterine fetuses of approximate seven week two day gestation. Abdomen MRI 01/14/20 06:36 IMPRESSION: NO SIGNIFICANT OR ACUTE FINDINGS. THE APPENDIX IS NOT SPECIFICALLY VISUALIZED BUT NO INFLAMMATORY CHANGES IN THE RIGHT LOWER QUADRANT. Assessment & Plan - Diagnosis (1) Acute appendicitis Qualifiers: Acute appendicitis type: unspecified acute appendicitis type Qualified Code(s): K35.80 - Unspecified acute appendicitis Is this a current diagnosis for this admission?: Yes Plan: Followed by Gen surg. Pain uncontrolled per patient. Tolerating PO. Ordered Oxycodone 5 mg Q 6 hr PRN pain 4 Ordered oxycodone 10 mg PO Q 6 hrs PRN severe pain 5 (2) Twin gestation in first trimester Qualifiers: Multiple gestation type: unspecified Qualified Code(s): O30.001 - Twin , unspecified number of placenta and unspecified number of amniotic sacs, first trimester Is this a current diagnosis for this admission?: Yes Plan: Stable from OB stand point. No VB, no uterine cramping. Continue PNV daily - Time Time Spent with patient: 15-24 minutes
[2020-01-16] MEDS: PIPERACILLIN SODIUM/TAZOBACTAM 3.375 GM in NORMAL SALINE 100 ML IV SCH ×3 (00:13→12:19)
[2020-01-16] MEDS: MORPHINE SULFATE 10 MG/ML INJ IV PRN ×3 (02:38→22:22)
[2020-01-16] MEDS: PROMETHAZINE HCL INJ 25 MG/1 ML VIAL IV PRN ×3 (03:25→18:18)
[2020-01-16] MEDS: DEXTROSE 5%-LACTATED RINGERS 1,000 ML IV PRN ×2 (06:39→15:01)
[2020-01-16 06:56] LABS: ABSOLUTE BASOPHILS # (AUTO) 0.1 10^3/uL (0.0-0.2); ABSOLUTE EOSINOPHILS # (AUTO) 0.2 10^3/uL (0.0-0.6); ABSOLUTE MONOCYTES (AUTO) 0.9 10^3/uL (0.1-1.4); ABSOLUTE NEUT (AUTO) 13.3 10^3/uL (1.7-8.2); BASOPHILS % (AUTO) 0.6 % (0-2); EOSINOPHILS % (AUTO) 1.4 % (0-6); HEMATOCRIT 30.4 % (36.0-47.0); HEMOGLOBIN 10.7 g/dL (12.0-15.5); MEAN CORPUSCULAR HEMOGLOBIN 30.1 pg (27.0-33.4); MEAN CORPUSCULAR HGB CONC 35.2 g/dL (32.0-36.0); MEAN CORPUSCULAR VOLUME 86 fl (80-97); MONOCYTES % (AUTO) 5.3 % (3-13); PLATELET COUNT 229 10^3/uL (150-450); RED BLOOD COUNT 3.55 10^6/uL (3.72-5.28); RED CELL DISTRIBUTION WIDTH 12.9 % (11.5-14.0); SEGMENTED NEUTROPHILS % (AUTO) 80.7 % (42-78); TOTAL CELLS COUNTED % (AUTO) 100 %; WHITE BLOOD COUNT 16.5 10^3/uL (4.0-10.5)
[2020-01-16] MEDS ORDERED: BISACODYL 10 MG SUPP.RECT PR ONE (09:00)
--- NOTE | 2020-01-16 14:02 | PDOC PROGRESS REPORT ---
Subjective Progress Note for:: 01/16/20 Subjective:: Complaining of nausea and vomiting with pains in the lower abdomen and along incision sites. Feels a lot of discomfort with constipation since it she claims she has not had a bowel movement since surgery. Reason For Visit: ACUTE APPENDICITIS TWIN PREGNANCIES 7 WEEKS Physical Exam Vital Signs: Temp Pulse Resp BP Pulse Ox 98.3 F 69 22 H 128/54 H 100 01/16/20 12:00 01/16/20 12:00 01/16/20 12:00 01/16/20 12:00 01/16/20 12:00 Intake & Output 01/15/20 01/16/20 01/17/20 06:59 06:59 06:59 Intake Total 4150 4000 100 Output Total 3560 Balance 590 4000 100 Weight 82.2 kg 79 kg Exam: Abdomen is soft with mild tenderness lower abdomen. Incisions look clean and dry. She remains afebrile Results Laboratory Results: 01/16/20 06:27 01/14/20 02:00 01/16/20 06:27 WBC 16.5 H RBC 3.55 L Hgb 10.7 L Hct 30.4 L MCV 86 MCH 30.1 MCHC 35.2 RDW 12.9 Plt Count 229 Seg Neutrophils % 80.7 H Impressions: Abdomen Ultrasound 01/14/20 03:01 IMPRESSION: Nonvisualization of the appendix and therefore cannot exclude appendicitis from this exam. If there is high clinical concern for appendicitis in this patient consider follow-up MRI without contrast. Obstetrics Ultrasound 01/14/20 03:01 IMPRESSION: Twin living intrauterine fetuses of approximate seven week two day gestation. Abdomen MRI 01/14/20 06:36 IMPRESSION: NO SIGNIFICANT OR ACUTE FINDINGS. THE APPENDIX IS NOT SPECIFICALLY VISUALIZED BUT NO INFLAMMATORY CHANGES IN THE RIGHT LOWER QUADRANT. Assessment & Plan - Diagnosis (1) Acute appendicitis Qualifiers: Acute appendicitis type: unspecified acute appendicitis type Qualified Code(s): K35.80 - Unspecified acute appendicitis Is this a current diagnosis for this admission?: Yes (2) Right lower quadrant pain Is this a current diagnosis for this admission?: Yes (3) Twin gestation in first trimester Qualifiers: Multiple gestation type: unspecified Qualified Code(s): O30.001 - Twin , unspecified number of placenta and unspecified number of amniotic sacs, first trimester Is this a current diagnosis for this admission?: Yes - Time Time Spent: 30 to 50 Minutes - Inpatient Certification Medical Necessity: Need Close Monitoring Due to Risk of Patient Decompensation, Need For IV Fluids, Risk of Complication if Not Cared For in Hospital - Plan Summary Plan Summary: She is postop day 2 post laparoscopic appendectomy for fecalith in the appendix. She claims her symptoms at this time appears to be is the same and she had her lap yogi months ago when she did not recover until 2 or 3 days after her surgery. She denies any vaginal discharge her original pains almost gone. Her abdomen is soft with just mild tenderness in the pelvic area. Plans: Continue with pain management and Phenergan for nausea vomiting. Continue to monitor white count. Continue with SLEEPING CAR CONDUCTOR follow-up. Since she remained afebrile and there is no obvious intra-abdominal infection we will stop the antibiotics for now and continue to monitor WBCs
[2020-01-17] MEDS: PROMETHAZINE HCL INJ 25 MG/1 ML VIAL IV PRN (04:43)
[2020-01-17] MEDS: DEXTROSE 5%-LACTATED RINGERS 1,000 ML IV PRN ×3 (04:50→22:51)
[2020-01-17] MEDS: MORPHINE SULFATE 10 MG/ML INJ IV PRN ×4 (04:52→22:50)
[2020-01-17 05:32] LABS: ABSOLUTE EOSINOPHILS # (AUTO) 0.2 10^3/uL (0.0-0.6); ABSOLUTE LYMPHOCYTES (AUTO) 2.1 10^3/uL (0.5-4.7); ABSOLUTE MONOCYTES (AUTO) 0.9 10^3/uL (0.1-1.4); ABSOLUTE NEUT (AUTO) 12.6 10^3/uL (1.7-8.2); BASOPHILS % (AUTO) 0.3 % (0-2); EOSINOPHILS % (AUTO) 1.4 % (0-6); HEMATOCRIT 33.9 % (36.0-47.0); HEMOGLOBIN 11.5 g/dL (12.0-15.5); LYMPHOCYTES % (AUTO) 13.4 % (13-45); MEAN CORPUSCULAR HEMOGLOBIN 29.2 pg (27.0-33.4); MEAN CORPUSCULAR HGB CONC 33.8 g/dL (32.0-36.0); MEAN CORPUSCULAR VOLUME 86 fl (80-97); MONOCYTES % (AUTO) 5.7 % (3-13); PLATELET COUNT 233 10^3/uL (150-450); RED BLOOD COUNT 3.93 10^6/uL (3.72-5.28); RED CELL DISTRIBUTION WIDTH 13.2 % (11.5-14.0); SEGMENTED NEUTROPHILS % (AUTO) 79.2 % (42-78); TOTAL CELLS COUNTED % (AUTO) 100 %
[2020-01-17] MEDS ORDERED: PROMETHAZINE HCL INJ 25 MG/1 ML VIAL IV ONE (10:24)
--- NOTE | 2020-01-17 10:30 | PDOC PROGRESS REPORT ---
Subjective Progress Note for:: 01/17/20 Subjective:: still nauseated, some incisional pain Reason For Visit: ACUTE APPENDICITIS TWIN PREGNANCIES 7 WEEKS Physical Exam Vital Signs: Temp Pulse Resp BP Pulse Ox 98.1 F 60 16 115/58 L 99 01/17/20 08:09 01/17/20 08:09 01/17/20 08:09 01/17/20 08:09 01/17/20 08:09 Intake & Output 01/16/20 01/17/20 01/18/20 06:59 06:59 06:59 Intake Total 4000 2600 Balance 4000 2600 Weight 79 kg General appearance: PRESENT: mild distress Head exam: PRESENT: normocephalic Eye exam: PRESENT: EOMI Ear exam: PRESENT: normal external ear exam Mouth exam: PRESENT: moist Neck exam: PRESENT: full ROM Respiratory exam: PRESENT: clear to auscultation awais Cardiovascular exam: PRESENT: RRR Pulses: PRESENT: normal radial pulses, normal femoral pulses GI/Abdominal exam: PRESENT: soft, tenderness Rectal exam: PRESENT: deferred Extremities exam: PRESENT: full ROM Musculoskeletal exam: PRESENT: full ROM Neurological exam: PRESENT: alert, awake, oriented to person, oriented to place Psychiatric exam: PRESENT: appropriate affect Skin exam: PRESENT: dry Results Laboratory Results: 01/17/20 05:17 01/14/20 02:00 01/17/20 05:17 WBC 16.0 H RBC 3.93 Hgb 11.5 L Hct 33.9 L MCV 86 MCH 29.2 MCHC 33.8 RDW 13.2 Plt Count 233 Seg Neutrophils % 79.2 H Impressions: Abdomen Ultrasound 01/14/20 03:01 IMPRESSION: Nonvisualization of the appendix and therefore cannot exclude appendicitis from this exam. If there is high clinical concern for appendicitis in this patient consider follow-up MRI without contrast. Obstetrics Ultrasound 01/14/20 03:01 IMPRESSION: Twin living intrauterine fetuses of approximate seven week two day gestation. Abdomen MRI 01/14/20 06:36 IMPRESSION: NO SIGNIFICANT OR ACUTE FINDINGS. THE APPENDIX IS NOT SPECIFICALLY VISUALIZED BUT NO INFLAMMATORY CHANGES IN THE RIGHT LOWER QUADRANT. Assessment & Plan - Plan Summary Plan Summary: spoke iwth ob who recommended bananna bag and phenergan will cont iv hydration and support possible home in [place].
[2020-01-17] MEDS ORDERED: NORMAL SALINE 1000 ML 1,000 ML with POTASSIUM CHLORIDE 20 MEQ, MAGNESIUM SULFATE 8 MEQ,... IV ONE ×5 (12:30)
--- NOTE | 2020-01-17 16:58 | RADIOLOGY REPORT (SQ) ---
EXAM DESCRIPTION: PICC INSERTION; U/S GUIDE FOR VASCULAR ACCESS; FLUORO/CV PLACEMENT COMPLETED DATE/TIME: 01/17/2020 4:46 pm REASON FOR STUDY: cont iv antibiotic ; IV ACCESS; IV ABX COMPARISON: None. FLUOROSCOPY TIME: 1 second 2 images saved to PACS. TECHNIQUE: Fluoroscopic and ultrasound guided PICC placement. LIMITATIONS: None. PROCEDURE: After written consent and assessment were obtained, the patient was brought into the fluo roscopy room and placed supine on the table. Ultrasound evaluation of potential access sites were per formed. After successfully identifying a patent left basilic vein, the left arm was prepped and drape d in a sterile fashion along with the ultrasound probe. The entry site was anesthetized with 1% lidoc calderon. A 21 gauge 7 cm needle was advanced through the skin and into the basilic vein under live ultra sound guidance. An ultrasound image was saved to PACS confirming access site. A .018 guide wire was then inserted through the needle and into the venous system. The needle was then removed and an 11 b lade scalpel was used to make a 1cm skin incision. A 5 fr peel-away sheath was advanced over the wir e and into the venous system. A measurement was then made using the existing wire and live fluoroscop ic guidance. The wire was then removed and trimmed. The PICC was advanced through the peel-away sheat h and into the venous system. The peel-away sheath was removed and the catheter was adhered to the pa tients arm with a stat lock. The catheter was then aspirated and flushed and a sterile bandage was pl aced over the access site. A fluoroscopic spot image was saved to PACS confirming the catheter tip w ithin the superior vena cava. IMPRESSION: SUCCESSFUL PLACEMENT OF A 5 FR DUAL LUMEN 39 CM PICC IN THE LEFT BASILIC VEIN. COMMENT: Patient medication list reviewed: Yes- Quality ID# 130:Eligible professional attests to doc umenting in the medical record they obtained, updated, or reviewed the patient's current medications. . Quality ID 145: Final reports for procedures using fluoroscopy that document radiation exposure madhu mohit, or exposure time and number of fluorographic images (if radiation exposure indices are not avail able) Quality ID #76: The patient was prepped and draped using maximum sterile barrier technique including cap, mask, sterile gown, sterile gloves, a large sterile sheet, hand hygiene, and 2% Chlorhexidine fo r cutaneous antisepsis. When ultrasound is used, sterile ultrasound techniques are followed requiring sterile gel and sterile probes. TECHNICAL DOCUMENTATION: JOB ID: [id number] 2010 [employer]- All Rights Reserved rev-04/06 Reading location - IP/workstation name: [email or web address]
[2020-01-17] MEDS ORDERED: PROMETHAZINE HCL INJ 25 MG/1 ML VIAL IV PRN (18:40)
--- NOTE | 2020-01-17 18:53 | PDOC PROGRESS REPORT ---
Subjective Progress Note for:: 01/17/20 Subjective:: Patient states that her pain is controlled. Her only complaint now is persistent nausea and vomiting. Patient stated that the nausea and vomiting started approximately 2 days ago. She has a twin intrauterine at approximately 7 weeks. She is currently using Phenergan. Reason For Visit: ACUTE APPENDICITIS TWIN PREGNANCIES 7 WEEKS Physical Exam - Physical Exam Vital Signs: Temp Pulse Resp BP Pulse Ox 97.8 F 66 18 122/68 100 01/17/20 14:31 01/17/20 14:31 01/17/20 14:31 01/17/20 14:31 01/17/20 14:31 Intake & Output 01/16/20 01/17/20 01/18/20 06:59 06:59 06:59 Intake Total 4000 2600 1500 Balance 4000 2600 1500 Weight 79 kg General appearance: PRESENT: no acute distress Respiratory exam: PRESENT: clear to auscultation awais Cardiovascular exam: PRESENT: RRR GI/Abdominal exam: PRESENT: normal bowel sounds, soft Extremities exam: ABSENT: calf tenderness, clubbing, full ROM, joint swelling, pedal edema, tenderness, +1 edema, +2 edema, other Result Laboratory Results: 01/17/20 05:17 01/14/20 02:00 01/17/20 05:17 WBC 16.0 H RBC 3.93 Hgb 11.5 L Hct 33.9 L MCV 86 MCH 29.2 MCHC 33.8 RDW 13.2 Plt Count 233 Seg Neutrophils % 79.2 H Impressions: Abdomen Ultrasound 01/14/20 03:01 IMPRESSION: Nonvisualization of the appendix and therefore cannot exclude appendicitis from this exam. If there is high clinical concern for appendicitis in this patient consider follow-up MRI without contrast. Obstetrics Ultrasound 01/14/20 03:01 IMPRESSION: Twin living intrauterine fetuses of approximate seven week two day gestation. Abdomen MRI 01/14/20 06:36 IMPRESSION: NO SIGNIFICANT OR ACUTE FINDINGS. THE APPENDIX IS NOT SPECIFICALLY VISUALIZED BUT NO INFLAMMATORY CHANGES IN THE RIGHT LOWER QUADRANT. Guidance Fluoroscopy 01/17/20 00:00 IMPRESSION: SUCCESSFUL PLACEMENT OF A 5 FR DUAL LUMEN 39 CM PICC IN THE LEFT BASILIC VEIN. Interventional Vascular Procedure 01/17/20 00:00 IMPRESSION: SUCCESSFUL PLACEMENT OF A 5 FR DUAL LUMEN 39 CM PICC IN THE LEFT BASILIC VEIN. PICC Line Insertion 01/17/20 00:00 IMPRESSION: SUCCESSFUL PLACEMENT OF A 5 FR DUAL LUMEN 39 CM PICC IN THE LEFT BASILIC VEIN. Assessment & Plan - Diagnosis (1) Nausea and vomiting during Is this a current diagnosis for this admission?: Yes (2) Acute appendicitis Qualifiers: Acute appendicitis type: unspecified acute appendicitis type Qualified Code(s): K35.80 - Unspecified acute appendicitis Is this a current diagnosis for this admission?: Yes (3) Right lower quadrant pain Is this a current diagnosis for this admission?: Yes (4) Twin gestation in first trimester Qualifiers: Multiple gestation type: unspecified Qualified Code(s): O30.001 - Twin , unspecified number of placenta and unspecified number of amniotic sacs, first trimester Is this a current diagnosis for this admission?: Yes - Time Time Spent with patient: 15-24 minutes Within: within 24 hours - Plan Summary Plan Summary: 1. Continue postop care 2. Management of nausea and vomiting--Decadron and Zofran given 3. Continue Phenergan as needed
[2020-01-17] MEDS ORDERED: DEXAMETHASONE SOD PHOSPHATE INJ 4 MG/1 ML VIAL ONE (20:21)
[2020-01-17] MEDS ORDERED: DEXAMETHASONE SOD PHOSPHATE INJ 4 MG/1 ML VIAL IV ONE (20:45)
[2020-01-17] MEDS ORDERED: ONDANSETRON HCL INJ/PF 4 MG/2 ML SDV IV ONE (20:45)
[2020-01-18] MEDS ORDERED: DIBUCAINE 1% OINTMENT 28 GM PR PRN (10:39)
[2020-01-18] MEDS ORDERED: GLYCERIN/WITCH HAZEL LEAF 1 EACH MED..WIPE TP PRN (10:39)
--- NOTE | 2020-01-18 12:18 | RADIOLOGY REPORT (SQ) ---
EXAM DESCRIPTION: U/S OB TRANSVAG W/DOPPLER COMPLETED DATE/TIME: 01/18/2020 12:00 pm REASON FOR STUDY: heart tones COMPARISON: 01/14/2020. TECHNIQUE: Transvaginal static and realtime grayscale images acquired of the pelvis. Additional ronni cted spectral and color Doppler images recorded. All images stored on PACs. bHC,[id number]. CLINICAL DATES: 8 week 2 day. LIMITATIONS: None. FINDINGS: Twin Intra-uterine gestation TYPE OF TWIN: Dichorionic Diamniotic. Two gestation sacs. Two yolk sacs. TWIN A: ULTRASOUND EGA: 7 week 6 day. ULTRASOUND ELZBIETA: 08/30/2020. EFW: Not applicable. Under 20 weeks. CRL: 1.49 cm. GESTATIONAL SAC: Not applicable. FP present. SURVEY: Too early to assess. FHR: 162 bpm. AMNIOTIC FLUID: Adequate amount. PLACENTA: Too early to assess. SUBCHORIONIC BLEED: No. SIZE OF BLEED: Not applicable. TWIN B: ULTRASOUND EGA: 7 week 5 day. ULTRASOUND ELZBIETA: 08/31/2020. EFW: Not applicable. Under 20 weeks. CRL: 1.4 cm. GESTATIONAL SAC: Not applicable. FP present. SURVEY: Too early to assess. FHR: 157 bpm. AMNIOTIC FLUID: Adequate amount. SUBCHORIONIC BLEED: No. SIZE OF BLEED: Not applicable. UTERUS: No masses. No anomalies. CERVICAL LENGTH: 3.5 cm. Closed. RIGHT ADNEXA: Ovary not identified due to poor acoustical window No adnexal free fluid. No adnexal masses. LEFT ADNEXA: Ovary not identified due to poor acoustical window No adnexal free fluid. No adnexal masses. FREE FLUID: Small amount of free fluid in the cul-de-sac. OTHER: No other significant finding. IMPRESSION: LIVING TWIN INTRAUTERINE TWIN A EGA: 7 WEEK 6 DAY. TWIN B EGA: 7 WEEK 5 DAY. Trimester of : First trimester - 0 to 13 weeks. TECHNICAL DOCUMENTATION: JOB ID: [id number] 2010 [email or web address]- All Rights Reserved rev-04/06 Reading location - IP/workstation name: [email or web address]
[2020-01-18 12:25] VITALS: BP 116/74
--- NOTE | 2020-01-18 14:20 | PDOC DISCHARGE SUMMARY ---
General - Admit/Disc Date/PCP Admission Date/Primary Care Provider: 01/14/20 13:16 Discharge Date: 01/18/20 - Discharge Diagnosis Final Diagnosis: Fecalith in the appendix Twin 7 weeks - Assessment Summary: Patient underwent laparoscopic appendectomy on 01/14/2020 patient was cleared by EMPLOYEE WELFARE MANAGER. Postoperatively patient had some pains and nausea and vomiting and eventually improve and tolerated regular diet and on the day of discharge. Ultrasound of the uterus done on the day of discharge and appears to be stable. Patient will be discharged to be followed up in the surgical clinic in 2 weeks - Additional Information Resuscitation Status: Full Code Discharge Diet: As Tolerated Discharge Activity: Activity As Tolerated Referrals: LOCAL,NO [NO LOCAL MD] - Follow up as needed Home Medications: Vits96/Iron Fum/Folic [ Tablet] 1 tab PO DAILY 01/14/20 History of Present Illiness History of Present Illness: JOSE GOVEA is a 24 year old female started complaining of nausea and vomiting 3 days ago. 2 days ago started complaining of pains and went to ED in [place] where MRI of the abdomen was done which showed possible appendicolith but no stranding noted. She is known to have a 7weeks twin . Yesterday she complained of severe severe abdominal pains and went to our ED where again an MRI was done which did not show the appendix. There is also no evidence of inflammation around the right lower quadrant area. However patient has tenderness and rebound on the right lower quadrant with nausea. Every time she eats she vomits. Her white count is 17,000 and her urine is essentially unremarkable. She was seen by Dr. Clay for ANTIQUE AUTOMOBILES REPAIRER and OB consultation and she feels there is no EMPLOYEE WELFARE MANAGER finding causing patient's right lower quadrant pains. Patient denies fever nor chills but admits to having constipation. Physical Exam Vital Signs: Temp Pulse Resp BP Pulse Ox 97.8 F 63 16 116/74 99 01/18/20 12:24 01/18/20 12:24 01/18/20 12:24 01/18/20 12:24 01/18/20 12:24 Intake & Output 01/17/20 01/18/20 01/19/20 06:59 06:59 06:59 Intake Total 2600 2500 Balance 2600 2500 Weight 87.8 kg Results Laboratory Results: WBC 16.0 10^3/uL (4.0-10.5) H 01/17/20 05:17 RBC 3.93 10^6/uL (3.72-5.28) 01/17/20 05:17 Hgb 11.5 g/dL (12.0-15.5) L 01/17/20 05:17 Hct 33.9 % (36.0-47.0) L 01/17/20 05:17 MCV 86 fl (80-97) 01/17/20 05:17 MCH 29.2 pg (27.0-33.4) 01/17/20 05:17 MCHC 33.8 g/dL (32.0-36.0) 01/17/20 05:17 RDW 13.2 % (11.5-14.0) 01/17/20 05:17 Plt Count 233 10^3/uL (150-450) 01/17/20 05:17 Lymph % (Auto) 13.4 % (13-45) 01/17/20 05:17 [place] % (Auto) 5.7 % (3-13) 01/17/20 05:17 Eos % (Auto) 1.4 % (0-6) 01/17/20 05:17 Baso % (Auto) 0.3 % (0-2) 01/17/20 05:17 Absolute Neuts (auto) 12.6 10^3/uL (1.7-8.2) H 01/17/20 05:17 Absolute Lymphs (auto) 2.1 10^3/uL (0.5-4.7) 01/17/20 05:17 Absolute Monos (auto) 0.9 10^3/uL (0.1-1.4) 01/17/20 05:17 Absolute Eos (auto) 0.2 10^3/uL (0.0-0.6) 01/17/20 05:17 Absolute Basos (auto) 0.0 10^3/uL (0.0-0.2) 01/17/20 05:17 Seg Neutrophils % 79.2 % (42-78) H 01/17/20 05:17 Sodium 139.0 mmol/L (137-145) 01/14/20 02:00 Potassium 4.1 mmol/L (3.6-5.0) 01/14/20 02:00 Chloride 105 mmol/L (98-107) 01/14/20 02:00 Carbon Dioxide 24 mmol/L (22-30) 01/14/20 02:00 Anion Gap 10 (5-19) 01/14/20 02:00 BUN 7 mg/dL (7-20) 01/14/20 02:00 Creatinine 0.49 mg/dL (0.52-1.25) L 01/14/20 02:00 Est GFR ( Amer) > 60 (>60) 01/14/20 02:00 Est GFR (MDRD) Non-Af > 60 (>60) 01/14/20 02:00 Glucose 89 mg/dL (75-110) 01/14/20 02:00 Calcium 9.4 mg/dL (8.4-10.2) 01/14/20 02:00 Total Bilirubin 0.2 mg/dL (0.2-1.3) 01/14/20 02:00 Direct Bilirubin 0.0 mg/dL (0.0-0.4) 01/14/20 02:00 Neonat Total Bilirubin Not Reportable 01/14/20 02:00 Neonat Direct Bilirubin Not Reportable 01/14/20 02:00 Neonat Indirect Bili Not Reportable 01/14/20 02:00 AST 17 U/L (14-36) 01/14/20 02:00 ALT 11 U/L (<35) 01/14/20 02:00 Alkaline Phosphatase 73 U/L (38-126) 01/14/20 02:00 Total Protein 7.3 g/dL (6.3-8.2) 01/14/20 02:00 Albumin 4.2 g/dL (3.5-5.0) 01/14/20 02:00 Lipase 28.2 U/L (23-300) 01/14/20 02:00 Serum HCG, Qual POSITIVE (NEGATIVE) H 01/14/20 02:00 Beta HCG, Quant 877479.00 mIU/mL (0.0-6.15) H 01/14/20 02:00 Total Beta HCG POSITIVE (NEGATIVE) 01/14/20 02:00 Urine Color YELLOW 01/14/20 02:00 Urine Appearance SLIGHTLY-CLOUDY 01/14/20 02:00 Urine pH 5.0 (5.0-9.0) 01/14/20 02:00 Ur Specific Maurice 1.020 01/14/20 02:00 Urine Protein NEGATIVE mg/dL (NEGATIVE) 01/14/20 02:00 Urine Glucose (UA) NEGATIVE mg/dL (NEGATIVE) 01/14/20 02:00 Urine Ketones NEGATIVE mg/dL (NEGATIVE) 01/14/20 02:00 Urine Blood NEGATIVE (NEGATIVE) 01/14/20 02:00 Urine Nitrite NEGATIVE (NEGATIVE) 01/14/20 02:00 Urine Bilirubin NEGATIVE (NEGATIVE) 01/14/20 02:00 Urine Urobilinogen NEGATIVE mg/dL (<2.0) 01/14/20 02:00 Ur Leukocyte Esterase NEGATIVE (NEGATIVE) 01/14/20 02:00 Urine WBC (Auto) 6 /HPF 01/14/20 02:00 Urine RBC (Auto) 5 /HPF 01/14/20 02:00 U Hyaline Cast (Auto) 1 /LPF 01/14/20 02:00 Urine Bacteria (Auto) TRACE /HPF 01/14/20 02:00 Squamous Epi Cells Auto 2 /HPF 01/14/20 02:00 U Non-Squamous Epis Auto 1 /HPF 01/14/20 02:00 Calcium Oxalate Cr Auto RARE /HPF 01/14/20 02:00 Urine Mucus (Auto) RARE /LPF 01/14/20 02:00 Urine Ascorbic Acid NEGATIVE (NEGATIVE) 01/14/20 02:00 Trichomonas (Wet Prep) NO TRICHOMONAS SEEN 01/14/20 03:17 Vaginal WBC NO WBCS SEEN 01/14/20 03:17 Vaginal RBC RARE RBCS SEEN 01/14/20 03:17 Vaginal Yeast NO YEAST SEEN 01/14/20 03:17 Chlamydia DNA (PCR) NOT DETECTED (NOT DETECT) 01/14/20 03:17 N.gonorrhoeae DNA (PCR) NOT DETECTED (NOT DETECT) 01/14/20 03:17 Blood Type O POSITIVE 01/14/20 02:55 Rhogam Indicated RHOGAM NOT INDICATED 01/14/20 02:55 Impressions: Obstetrics Ultrasound 01/14/20 00:00 IMPRESSION: Please see combined report for performance of procedure and radiologic supervision and interpretation. Abdomen Ultrasound 01/14/20 03:01 IMPRESSION: Nonvisualization of the appendix and therefore cannot exclude appendicitis from this exam. If there is high clinical concern for appendicitis in this patient consider follow-up MRI without contrast. Obstetrics Ultrasound 01/14/20 03:01 IMPRESSION: Twin living intrauterine fetuses of approximate seven week two day gestation. Abdomen MRI 01/14/20 06:36 IMPRESSION: NO SIGNIFICANT OR ACUTE FINDINGS. THE APPENDIX IS NOT SPECIFICALLY VISUALIZED BUT NO INFLAMMATORY CHANGES IN THE RIGHT LOWER QUADRANT. Guidance Fluoroscopy 01/17/20 00:00 IMPRESSION: SUCCESSFUL PLACEMENT OF A 5 FR DUAL LUMEN 39 CM PICC IN THE LEFT BASILIC VEIN. Interventional Vascular Procedure 01/17/20 00:00 IMPRESSION: SUCCESSFUL PLACEMENT OF A 5 FR DUAL LUMEN 39 CM PICC IN THE LEFT BASILIC VEIN. PICC Line Insertion 01/17/20 00:00 IMPRESSION: SUCCESSFUL PLACEMENT OF A 5 FR DUAL LUMEN 39 CM PICC IN THE LEFT BASILIC VEIN. Transvaginal US 01/18/20 00:00 IMPRESSION: LIVING TWIN INTRAUTERINE TWIN A EGA: 7 WEEK 6 DAY. TWIN B EGA: 7 WEEK 5 DAY. Trimester of : First trimester - 0 to 13 weeks.
== END 2020-01-18 13:42 | disposition home or self-care (01) ==
LOC: ER 00:42 → INTOOBSV 13:16 → EH 13:16 → 2N 16:20
PROVIDERS: ADMIT Surgery; ATTEND Surgery
DX: O99.611 Diseases of the digestive system complicating pregnancy, first trimester (principal); K38.1 Appendicular concretions; R10.31 Right lower quadrant pain; G89.18 Other acute postprocedural pain; O30.041 Twin pregnancy, dichorionic/diamniotic, first trimester; O21.8 Other vomiting complicating pregnancy; K59.00 Constipation, unspecified; E86.0 Dehydration; O26.851 Spotting complicating pregnancy, first trimester; R10.823 Right lower quadrant rebound abdominal tenderness; D72.829 Elevated white blood cell count, unspecified; O34.81 Maternal care for other abnormalities of pelvic organs, first trimester; N83.201 Unspecified ovarian cyst, right side; J02.9 Acute pharyngitis, unspecified; Z3A.01 Less than 8 weeks gestation of pregnancy; Z90.49 Acquired absence of other specified parts of digestive tract; Z87.442 Personal history of urinary calculi
CPT/HCPCS: 96376; 99285; 96361; 96374; 96375; 86900; 86901; 36415 ×4; 87210; 84702; 83690; 84703; 85025 ×4; 80053; 81001; 87491; 87591; 88304 ×2; 74181; 36569; 77001; 76801; 76802; 76817; 76705; 93976 ×2; 76937; 00840; 44970; G0378 ×5; J3490 ×5; J1100 ×2; J3010; J3475; J2270 ×4; J2710; J1170; J2370; J3480; J2550 ×4; J0330; J3411; J2405 ×2; J7121 ×4; J7050 ×3; J7030 ×2; J2704; J1642; J2543 ×3; 840